=== PATIENT | male | born 1945 | race Caucasian/White ===

== ENCOUNTER 2016-08-20 14:35 | Emergency (ER) | payer MEDICARE, OTHER ==
[~2016-08-20] VITALS: Ht 167.6 cm; Wt 83.1 kg
[~2016-08-20 14:35] MED LIST: AMLO10 PO; ASPI81TA82 PO; KEPP1000 OR; LAMO150 PO
[2016-08-20 14:38] VITALS: BP 145/70; PULSE 80; RESP 16; TEMP 97.6; O2SAT 95
[2016-08-20] MEDS ORDERED: KEPP10002 PO (14:53)
[2016-08-20] MEDS ORDERED: AMLO10TA2 PO (14:53)
[2016-08-20] MEDS ORDERED: ASPI81TA11 PO (14:53)
[2016-08-20] MEDS ORDERED: LAMO150 PO (14:53)
--- NOTE | 2016-08-20 14:55 | PD ---
HPI Chief Complaint: Numbness/Tingling Time Seen by Provider: 14:53 Travel History International Travel<30 days: No Contact w/Intl Traveler<30days: No Traveled to known affect area: No History of Present Illness HPI 71-year-old male came to the emergency room with history of vomiting that started suddenly about 2 hours ago. Patient says that since then he vomited 3 times and voluminous quantity. No history of diarrhea. No history of fever or chills. However for past 20 minutes patient has been having tingling and numbness of both his feet especially the plantar aspect. They are equal on both sides. No other neurologic deficit. Vital signs were stable. [facility] Past Medical History Narrative Medical List of his past medical history as reviewed from the nursing note. Cancer: No Cardiovascular Problems: No Endocrine: No Genitourinary: No Hepatitis: Yes (A, CHILD) Hypertension: Yes Immune Disorder: No Medical other: Yes (polycemia) Musculoskeletal: No Psychiatric: No Reproductive: No Respiratory: No Seizures: Yes Past Surgical History Joint Replacement: Yes (RIGHT ANKLE PLATE) Other Surgery: Yes (dental work, nasal surgery) Social History Alcohol Use: No Tobacco Use: No Substance Use: No Allergies-Medications (Allergen,Severity, Reaction): Coded Allergies: Codeine (Verified Allergy, Severe, HIVES AND SHAKING, 10/10/12) Uncoded Allergies: NO BLOOD (Adverse Reaction, 10/11/12) Comments List of his allergies reviewed from the nursing note. Reported Meds & Prescriptions Reported Meds & Active Scripts Active Reported Aspirin EC (Aspirin) 81 Mg Tabdr 81 Mg PO DAILY Lamictal (Lamotrigine) 150 Mg Tab 150 Mg PO BID Keppra (Levetiracetam) 1,000 Mg Tab 1,000 Mg PO BID Amlodipine (Amlodipine Besylate) 10 Mg Tab 10 Mg PO DAILY Narrative Medication List of his home medications reviewed from the nursing note. Review of Systems Except as stated in HPI: all other systems reviewed are Neg Physical Exam Narrative GENERAL: Awake, alert, anxious SKIN: Warm and dry. HEAD: Atraumatic. Normocephalic. EYES: Pupils equal and round. No scleral icterus. No injection or drainage. ENT: No nasal bleeding or discharge. Mucous membranes pink and moist. NECK: Trachea midline. No JVD. CARDIOVASCULAR: Regular rate and rhythm. No murmur appreciated. RESPIRATORY: No accessory muscle use. Clear to auscultation. Breath sounds equal bilaterally. GASTROINTESTINAL: Abdomen soft, non-tender, nondistended. Hepatic and splenic margins not palpable. MUSCULOSKELETAL: No obvious deformities. No clubbing. No cyanosis. No edema. NEUROLOGICAL: Awake and alert. No obvious cranial nerve deficits. Motor grossly within normal limits. Normal speech. PSYCHIATRIC: Appropriate mood and affect; insight and judgment normal. Data Data Last Documented VS Vital Signs Date Time Temp Pulse Resp B/P Pulse Ox O2 Delivery O2 Flow Rate FiO2 08/20/16 19:04 82 18 148/72 98 08/20/16 14:49 Room Air 08/20/16 14:38 97.6 Orders Complete Blood Count With Diff (08/20/16 15:03) Basic Metabolic Panel (Bmp) (08/20/16 15:03) Type And Screen (08/20/16 15:03) Sodium Chlor 0.9% 1000 Ml Inj (Ns 1000 M (08/20/16 15:15) Ct Brain W/O Iv Contrast(Rout) (08/20/16 ) Labs Laboratory Tests Test 08/20/16 15:15 White Blood Count 7.9 TH/MM3 Red Blood Count 4.38 MIL/MM3 Hemoglobin 15.3 GM/DL Hematocrit 44.9 % Mean Corpuscular Volume 102.7 FL Mean Corpuscular Hemoglobin 34.9 PG Mean Corpuscular Hemoglobin 34.0 % Concent Red Cell Distribution Width 15.1 % Platelet Count 373 TH/MM3 Mean Platelet Volume 8.4 FL Neutrophils (%) (Auto) 82.2 % Lymphocytes (%) (Auto) 8.0 % Monocytes (%) (Auto) 7.2 % Eosinophils (%) (Auto) 1.9 % Basophils (%) (Auto) 0.7 % Neutrophils # (Auto) 6.5 TH/MM3 Lymphocytes # (Auto) 0.6 TH/MM3 Monocytes # (Auto) 0.6 TH/MM3 Eosinophils # (Auto) 0.2 TH/MM3 Basophils # (Auto) 0.1 TH/MM3 CBC Comment DIFF FINAL Differential Comment Sodium Level 141 MEQ/L Potassium Level 4.0 MEQ/L Chloride Level 106 MEQ/L Carbon Dioxide Level 25.7 MEQ/L Anion Gap 9 MEQ/L Blood Urea Nitrogen 14 MG/DL Creatinine 1.60 MG/DL Estimat Glomerular Filtration 43 ML/MIN Rate Random Glucose 110 MG/DL Calcium Level 9.1 MG/DL Blood Type O POSITIVE Antibody Screen NEGATIVE Blood Bank Comment MDM Medical Decision Making Medical Screen Exam Complete: Yes Emergency Medical Condition: Yes Medical Record Reviewed: Yes Differential Diagnosis Dehydration, polycythemia vera, anxiety, neuropathy Narrative Course 4:59 PM blood test results of back and appears to be within acceptable limits. Patient has some renal insufficiency but otherwise within normal limits. Ordered a CAT scan of his brain. Patient is getting IV fluid bolus. 5:53 PM blood test results and the CAT scan are within normal limit. Patient will be discharged home. I went and reassessed the patient and he said that his procedure was gone and he feels much better. Procedures EKG Prior to Arrival: No Diagnosis Primary Impression: Paresthesia Additional Impressions: Neuropathy Vomiting Qualified Code: R11.2 - Non-intractable vomiting with nausea, unspecified vomiting type Referrals: Primary Care Physician 2 days Additional Instructions: Please return to the ER if the condition worsens or any other new concerns. Otherwise follow-up with your primary care in couple days. Med/Other Pt SpecificInfo: No Change to Meds Disposition: 01 DISCHARGE HOME Condition: Stable Sruthi Chandler MD Aug 20, 2016 14:55
[2016-08-20] MEDS ORDERED: SODIUM CHLOR 0.9% 1000 ML INJ 1,000 ML IV ONE (15:15)
[2016-08-20 16:04] LABS: AUTOMATED NEUTROPHIL # 6.5 TH/MM3 (1.8-7.7); BASOPHIL # 0.1 TH/MM3 (0-0.2); BASOPHIL % 0.7 % (0.0-2.0); EOSINOPHIL # 0.2 TH/MM3 (0-0.4); EOSINOPHIL % 1.9 % (0.0-4.0); HEMATOCRIT 44.9 % (39.0-51.0); HEMO FLAGS DIFF FINAL; LYMPHOCYTE # 0.6 TH/MM3 (1.0-4.8); MEAN CELL VOLUME 102.7 FL (80.0-100.0); MEAN CORPUSCULAR HEMOGLOBIN 34.9 PG (27.0-34.0); MONO % 7.2 % (0.0-8.0); NEUT % 82.2 % (16.0-70.0); PLATELET COUNT 373 TH/MM3 (150-450); RED BLOOD COUNT 4.38 MIL/MM3 (4.50-5.90); RED CELL DISTRIBUTION WIDTH 15.1 % (11.6-17.2); WHITE BLOOD COUNT 7.9 TH/MM3 (4.0-11.0)
[2016-08-20 16:43] LABS: BICARBONATE 25.7 MEQ/L (21.0-32.0)
--- NOTE | 2016-08-20 17:37 | RADRPT ---
EXAM DATE/TIME: 08/20/2016 17:11 [facility] COMPARISON: CT BRAIN W/O CONTRAST, October 10, 2012, 16:14. INDICATIONS : Dizziness, bilateral leg weakness. RADIATION DOSE: 56.35 CTDIvol (mGy) MEDICAL HISTORY : Hypertension. Seizures. SURGICAL HISTORY : None. ENCOUNTER: Initial ACUITY: 1 day PAIN SCALE: 2/10 LOCATION: cranial TECHNIQUE: Multiple contiguous axial images were obtained of the head. Using automated exposure control and adjustment of the mA and/or kV according to patient size, radiation dose was kept as low as reasonably achievable to obtain optimal diagnostic quality images. FINDINGS: CEREBRUM: The ventricles are normal for age. No evidence of midline shift, mass lesion, hemorrha ge or acute infarction. No extra-axial fluid collections are seen. POSTERIOR FOSSA: The cerebellum and brainstem are intact. The 4th ventricle is midline. The cer ebellopontine angle is unremarkable. EXTRACRANIAL: The visualized portion of the orbits is intact. SKULL: The calvaria is intact. No evidence of skull fracture. CONCLUSION: Negative for an acute process. Previous surgery to the nasal bone. Evens Carrillo MD FACR on August 20, 2016 at 17:34 Board Certified Radiologist. This report was verified electronically.
[2016-08-20 19:04] VITALS: BP 148/72
== END 2016-08-20 19:05 | disposition home or self-care (01) ==
LOC: NEPE 14:35
DX: R12 Heartburn (principal); R20.2 Paresthesia of skin; G62.9 Polyneuropathy, unspecified; I10 Essential (primary) hypertension
CPT/HCPCS: 70450; 80048; 85025; 86850; 86900; 86901; 99284; J7030

== ENCOUNTER 2017-12-28 10:24 | Emergency (ER) | payer MEDICARE, OTHER ==
[~2017-12-28] VITALS: Ht 170.2 cm; Wt 86.1 kg
[~2017-12-28 10:24] MED LIST changes: -AMLO10 PO; +AMLO10TA2 PO; +ASPI81TA23 PO; -ASPI81TA82 PO; -KEPP1000 OR; +KEPP10002 PO
[2017-12-28 10:25] VITALS: BP 137/60; PULSE 71; RESP 20; TEMP 97.8; O2SAT 97
--- NOTE | 2017-12-28 10:37 | PD ---
HPI Chief Complaint: Musculoskeletal Complaint Time Seen by Provider: 10:30 Travel History International Travel<30 days: No Contact w/Intl Traveler<30days: No Traveled to known affect area: No History of Present Illness HPI 72-year-old male presents to the emergency department for evaluation of right foot pain for 3 days. He is unsure if he has had any injury. He states the pain is 5/10, aching and throbbing, with ambulation, pain is 1/10 with keeping the foot still. Reports the pain is on the plantar surface just below the great toe. Patient denies any history of similar pain. Denies any calf pain or swelling. No fevers or chills. He has no other symptoms or complaints. Patient has history of hypertension, polycythemia vera, seizure disorder. Mild severity. He denies any previous foot surgery. PFSH Past Medical History Cancer: No Cardiovascular Problems: No Endocrine: No Genitourinary: No Hepatitis: Yes (A, CHILD) Hypertension: Yes Immune Disorder: No Musculoskeletal: No Psychiatric: No Reproductive: No Respiratory: No Seizures: Yes Past Surgical History Joint Replacement: Yes (RIGHT ANKLE PLATE) Other Surgery: Yes (dental work, nasal surgery) Social History Alcohol Use: No Tobacco Use: No Substance Use: No Allergies-Medications (Allergen,Severity, Reaction): Coded Allergies: codeine (Unverified Allergy, Severe, HIVES AND SHAKING, 12/28/17) Uncoded Allergies: NO BLOOD (Adverse Reaction, Unknown, 03/21/17) Reported Meds & Prescriptions Reported Meds & Active Scripts Active Prednisone 20 Mg Tab 40 Mg PO DAILY Take 40 mg (2 tablets) daily for 5 days Reported Aspirin EC (Aspirin) 81 Mg Tabdr 81 Mg PO DAILY Lamictal (Lamotrigine) 150 Mg Tab 150 Mg PO BID Keppra (Levetiracetam) 1,000 Mg Tab 1,000 Mg PO BID Amlodipine (Amlodipine Besylate) 10 Mg Tab 10 Mg PO DAILY Review of Systems Except as stated in HPI: all other systems reviewed are Neg Physical Exam Narrative GENERAL: Well-nourished, well-developed male patient, ambulatory. Afebrile. SKIN: Focused skin assessment warm/dry. Mild erythema over first MTP joint, no edema or warmth. No obvious deformity. HEAD: Normocephalic. Atraumatic. EYES: No scleral icterus. No injection or drainage. NECK: Supple, trachea midline. No JVD or lymphadenopathy. CARDIOVASCULAR: Regular rate and rhythm without murmurs, gallops, or rubs. Right pedal pulse is 2+. RESPIRATORY: Breath sounds equal bilaterally. No accessory muscle use. MUSCULOSKELETAL: No cyanosis, or edema. No obvious deformity. No reproducible tenderness. Patient has full range of motion of all digits of the right foot. BACK: Nontender without obvious deformity. No CVA tenderness. Data Data Last Documented VS Vital Signs Date Time Temp Pulse Resp B/P (MAP) Pulse Ox O2 Delivery O2 Flow Rate FiO2 12/28/17 10:25 97.8 71 20 137/60 (85) 97 Orders Orders Foot, Complete ([id number]) (12/28/17 ) [facility] Medical Decision Making Medical Screen Exam Complete: Yes Emergency Medical Condition: Yes Medical Record Reviewed: Yes Interpretation(s) Last Impressions Foot X-Ray 12/28/17 0000 Signed Impressions: CONCLUSION: No acute bony findings Differential Diagnosis sprain vs. fracture vs contusion vs plantar fasciitis versus gouty arthritis versus arthritis Narrative Course 72-year-old male presents to the emergency department for evaluation right foot pain for 3 days. Physical exam is reassuring. X-ray of the right foot is ordered and pending. X-ray of the right foot shows no acute bony findings. Possible sprain versus gout with mild erythema over the MTP joint. Patient declines pain medication. He will be discharged a prescription for prednisone for possible gout. He will be given Prashanth bandage instructed to follow-up with his primary care physician. He is return here for any acute worsening of symptoms. The patient was discharged in stable condition with instructions, including return instructions and follow up instructions. Diagnosis Primary Impression: Right foot pain Referrals: Primary Care Physician call for appointment Patient Instructions: Foot Sprain (ED), General Instructions, Gout (ED) Additional Instructions: Wear prashanth bandage for support. Take prednisone as directed. Follow up with your primary care physician. Return to the emergency department for any acute, worsening of symptoms. Med/Other Pt SpecificInfo: Prescription(s) given Scripts Prednisone (Prednisone) 20 Mg Tab 40 MG PO DAILY, #10 TAB 0 Refills Take 40 mg (2 tablets) daily for 5 days Prov: Gladis Singleton 12/28/17 Disposition: 01 DISCHARGE HOME Condition: Stable Gladis Singleton December 28, 2017 10:37
--- NOTE | 2017-12-28 11:00 | RADRPT ---
EXAM DATE: 12/28/2017 10:49 AM EDT AGE/SEX: 72 years / Male INDICATIONS: Right foot pain with redness. No known injury CLINICAL DATA: This is the patient's initial encounter. Patient reports that signs and symptoms have been present for 3 days and indicates a pain score of 5/10. MEDICAL/SURGICAL HISTORY: . Pre diabetic . Right foot hardware COMPARISON: No prior [facility] exams available for comparison. FINDINGS: Previous hardware reconstruction of the calcaneus. Hardware appears grossly intact. The foot appears otherwise intact and unremarkable with no evidence of fracture or dislocation. No destructive changes are identified. CONCLUSION: No acute bony findings Electronically signed by: El Segovia MD 12/28/2017 10:58 AM EDT
[2017-12-28] MEDS ORDERED: PRED20 PO (11:06)
== END 2017-12-28 11:16 | disposition home or self-care (01) ==
LOC: PHEFT 10:24
DX: M79.671 Pain in right foot (principal); I10 Essential (primary) hypertension; D45 Polycythemia vera; G40.909 Epilepsy, unspecified, not intractable, without status epilepticus
CPT/HCPCS: 73630; 99283